=== PATIENT | male | born 1995 | race Caucasian/White ===

== ENCOUNTER 2022-01-17 21:29 | Emergency (ER) | payer SELFPAY ==
[2022-01-17] MEDS ORDERED: LORazepam 2 MG/ML VIAL IM PRN (21:53)
[2022-01-17] MEDS ORDERED: HALOPERIDOL LACTATE 5 MG/1 ML INJ IM PRN (21:53)
--- NOTE | 2022-01-17 21:56 | Emergency Department Report ---
ED General Adult HPI - General Chief complaint: Alcohol Stated complaint: ETOH Time Seen by Provider: 01/17/22 21:48 Source: family, RN notes reviewed Mode of arrival: Ambulatory Limitations: Altered Mental Status, Other (Patient will not answer my question) - History of Present Illness Initial comments: The patient is a 26-year-old gentleman. He is brought to the hospital with family. History obtained from friend/family at the bedside. They report the patient has been consuming alcohol, and has been having some family difficulty or fights. They also report the patient has been making concerning statements, about possibly hurting himself or other people. They state that the patient has fallen, although they are not sure about the nature of the fall. The patient is awake. He is breathing spontaneously. He is moving 4 extremities. He will not answer my questions. As per his cousin who is at the bedside, this has been going on for the past couple of days. -: days(s) - Related Data Allergies Allergy/AdvReac Type Severity Reaction Status Date / Time No Known Allergies Allergy Verified 01/17/22 21:37 ED Review of Systems ROS: Stated complaint: ETOH Other details as noted in HPI Comment: Unobtainable due to pts medical conditions ED Physical Exam - General Limitations: Altered Mental Status, Other (Patient is awake but not answering my question) General appearance: appears intoxicated, anxious - Head Head exam: Present: atraumatic, normocephalic - Eye Eye exam: Present: normal appearance, PERRL, EOMI. Absent: nystagmus - ENT ENT exam: Present: normal exam, normal orophraynx, mucous membranes moist, normal external ear exam - Neck Neck exam: Present: normal inspection, full ROM. Absent: tenderness, meningismus - Respiratory Respiratory exam: Present: normal lung sounds bilaterally. Absent: respiratory distress, wheezes, rales, rhonchi, stridor, decreased breath sounds - Cardiovascular Cardiovascular Exam: Present: regular rate, normal rhythm, normal heart sounds. Absent: bradycardia, tachycardia, irregular rhythm, systolic murmur, diastolic murmur, rubs, gallop - GI/Abdominal GI/Abdominal exam: Present: soft. Absent: distended, tenderness, guarding, rebound, rigid, pulsatile mass - Rectal Rectal exam: Present: deferred - Extremities Exam Extremities exam: Present: normal inspection, normal capillary refill, other (2+ pulses noted in the bilateral upper and lower extremities. There is no palpable cord. negative Homans sign. Muscular compartments are soft. The pelvis is stable.). Absent: pedal edema, calf tenderness - Back Exam Back exam: Present: normal inspection. Absent: tenderness, CVA tenderness (R), CVA tenderness (L), paraspinal tenderness, vertebral tenderness - Neurological Exam Neurological exam: Present: altered, other (The patient is awake. The patient was 4 extremities. There is no facial droop. The patient will not answer my question) - Skin Skin exam: Present: warm, dry, intact, normal color. Absent: rash ED Course Vital Signs 01/17/22 01/17/22 01/17/22 21:34 23:17 23:18 Temperature 98 F 98.8 F Pulse Rate 98 H 91 H Respiratory 16 15 Rate Blood Pressure 150/89 114/63 [Right] O2 Sat by Pulse 100 98 98 Oximetry - Reevaluation(s) Reevaluation #1: 01/17/22 23:22 Differential diagnosis, including not limited to: Alcohol intoxication, polysubstance intoxication, conversion disorder, closed head injury, cervical spine injury Assessment and plan: 26-year-old gentleman, brought to the hospital by family after possible fall, and intoxication, with concerning psychiatric symptoms. Patient is placed on 2012 for the aforementioned. Given alteration in mental status, history of fall, CT scan of the brain and cervical spine are obtained, and are negative for acute traumatic findings. Laboratory studies thus far are nonactionable. CBC is pending. Psychiatric consultation is requested. 01/17/22 23:24 Covid swab ordered in anticipation of potential psychiatric placement and disposition. Care will be transferred to the oncoming physician to follow-up on CBC. Presuming unremarkable CBC, we would consider this patient medically suitable for psychiatric consultation, disposition and placement. Suspect a component of conversion disorder at this point in time. 01/17/22 23:48 CBC is unremarkable. Patient moving 4 extremities. Apparently endorsed suicidality. Psychiatric consultation is pending. At this point in time, this patient does not appear to have an immediate medical contraindication to psychiatric admission, evaluation, consultation and placement ED Medical Decision Making - Lab Data Result diagrams: 01/17/22 23:28 01/17/22 Unknown Vital Signs 01/17/22 01/17/22 01/17/22 21:34 23:17 23:18 Temperature 98 F 98.8 F Pulse Rate 98 H 91 H Respiratory 16 15 Rate Blood Pressure 150/89 114/63 [Right] O2 Sat by Pulse 100 98 98 Oximetry Lab Results 01/17/22 01/17/22 01/17/22 Range/Units 21:55 21:55 21:55 Sodium (137-145) mmol/L Potassium (3.6-5.0) mmol/L Chloride (98-107) mmol/L Carbon Dioxide (22-30) mmol/L Anion Gap mmol/L BUN (9-20) mg/dL Creatinine (0.8-1.3) mg/dL Estimated GFR ml/min BUN/Creatinine Ratio % Glucose (75-100) mg/dL Calcium (8.4-10.2) mg/dL Magnesium 2.10 (1.7-2.3) mg/dL Total Bilirubin (0.1-1.2) mg/dL AST (5-40) units/L ALT (7-56) units/L Alkaline Phosphatase (35-129) units/L Total Creatine Kinase 309 H (55-170) units/L Total Protein (6.3-8.2) g/dL Albumin (3.9-5) g/dL Albumin/Globulin Ratio % Urine Color (Yellow) Urine Turbidity (Clear) Urine pH (5.0-7.0) Ur Specific [place] (1.003-1.030) Urine Protein (Negative) mg/dL Urine Glucose (UA) (Negative) mg/dL Urine Ketones (Negative) mg/dL Urine Blood (Negative) Urine Nitrite (Negative) Urine Bilirubin (Negative) Urine Urobilinogen (<2.0) mg/dL Ur Leukocyte Esterase (Negative) Urine WBC (Auto) (0.0-6.0) /HPF Urine RBC (Auto) (0.0-6.0) /HPF Salicylates < 0.3 L (2.8-20.0) mg/dL Urine Opiates Screen Urine Methadone Screen Acetaminophen (10.0-30.0) ug/mL Ur Barbiturates Screen Ur Phencyclidine Scrn Ur Amphetamines Screen U Benzodiazepines Scrn Urine Cocaine Screen U Marijuana (THC) Screen Drugs of Abuse Note Plasma/Serum Alcohol 0.07 (0-0.07) % 01/17/22 01/17/22 01/17/22 Range/Units 21:55 23:18 Unknown Sodium (137-145) mmol/L Potassium (3.6-5.0) mmol/L Chloride (98-107) mmol/L Carbon Dioxide (22-30) mmol/L Anion Gap mmol/L BUN (9-20) mg/dL Creatinine (0.8-1.3) mg/dL Estimated GFR ml/min BUN/Creatinine Ratio % Glucose (75-100) mg/dL Calcium (8.4-10.2) mg/dL Magnesium (1.7-2.3) mg/dL Total Bilirubin (0.1-1.2) mg/dL AST (5-40) units/L ALT (7-56) units/L Alkaline Phosphatase (35-129) units/L Total Creatine Kinase (55-170) units/L Total Protein (6.3-8.2) g/dL Albumin (3.9-5) g/dL Albumin/Globulin Ratio % Urine Color Colorless (Yellow) Urine Turbidity Clear (Clear) Urine pH 7.0 (5.0-7.0) Ur Specific [place] 1.004 (1.003-1.030) Urine Protein <15 mg/dl (Negative) mg/dL Urine Glucose (UA) Neg (Negative) mg/dL Urine Ketones Neg (Negative) mg/dL Urine Blood Neg (Negative) Urine Nitrite Neg (Negative) Urine Bilirubin Neg (Negative) Urine Urobilinogen < 2.0 (<2.0) mg/dL Ur Leukocyte Esterase Neg (Negative) Urine WBC (Auto) < 1.0 (0.0-6.0) /HPF Urine RBC (Auto) < 1.0 (0.0-6.0) /HPF Salicylates (2.8-20.0) mg/dL Urine Opiates Screen Presumptive negative Urine Methadone Screen Presumptive negative Acetaminophen 5.0 L (10.0-30.0) ug/mL Ur Barbiturates Screen Presumptive negative Ur Phencyclidine Scrn Presumptive negative Ur Amphetamines Screen Presumptive negative U Benzodiazepines Scrn Presumptive negative Urine Cocaine Screen Presumptive negative U Marijuana (THC) Screen Presumptive negative Drugs of Abuse Note Disclamer Plasma/Serum Alcohol (0-0.07) % 01/17/22 Range/Units Unknown Sodium 139 (137-145) mmol/L Potassium 3.9 (3.6-5.0) mmol/L Chloride 102.0 (98-107) mmol/L Carbon Dioxide 25 (22-30) mmol/L Anion Gap 16 mmol/L BUN 12 (9-20) mg/dL Creatinine 0.8 (0.8-1.3) mg/dL Estimated GFR > 60 ml/min BUN/Creatinine Ratio 15 % Glucose 131 H (75-100) mg/dL Calcium 9.2 (8.4-10.2) mg/dL Magnesium (1.7-2.3) mg/dL Total Bilirubin 0.30 (0.1-1.2) mg/dL AST 31 (5-40) units/L ALT 40 (7-56) units/L Alkaline Phosphatase 91 (35-129) units/L Total Creatine Kinase (55-170) units/L Total Protein 7.9 (6.3-8.2) g/dL Albumin 4.5 (3.9-5) g/dL Albumin/Globulin Ratio 1.3 % Urine Color (Yellow) Urine Turbidity (Clear) Urine pH (5.0-7.0) Ur Specific [place] (1.003-1.030) Urine Protein (Negative) mg/dL Urine Glucose (UA) (Negative) mg/dL Urine Ketones (Negative) mg/dL Urine Blood (Negative) Urine Nitrite (Negative) Urine Bilirubin (Negative) Urine Urobilinogen (<2.0) mg/dL Ur Leukocyte Esterase (Negative) Urine WBC (Auto) (0.0-6.0) /HPF Urine RBC (Auto) (0.0-6.0) /HPF Salicylates (2.8-20.0) mg/dL Urine Opiates Screen Urine Methadone Screen Acetaminophen (10.0-30.0) ug/mL Ur Barbiturates Screen Ur Phencyclidine Scrn Ur Amphetamines Screen U Benzodiazepines Scrn Urine Cocaine Screen U Marijuana (THC) Screen Drugs of Abuse Note Plasma/Serum Alcohol (0-0.07) % - EKG Data -: EKG Interpreted by Sd EKG shows normal: sinus rhythm Rate: normal - EKG Data When compared to previous EKG there are: previous EKG unavailable 01/17/22 23:34 The EKG is interpreted at 23: 22 Sinus rhythm, 88 bpm. Normal axis, normal P wave axis, normal intervals, and high left ventricular voltage. This is an abnormal EKG. This is not a STEMI - Radiology Data Radiology results: report reviewed, image reviewed CT HEAD WITHOUT CONTRAST INDICATION / CLINICAL INFORMATION: Closed Head Injury, E.T.O.H. intoxication. TECHNIQUE: CT head was performed without administration of intravenous contrast. All CT scans at this location are performed using CT dose reduction for ALARA by means of automated exposure control. COMPARISON: None available. FINDINGS: CEREBRAL PARENCHYMA: No significant abnormality. No acute territorial infarct. HEMORRHAGE: None. EXTRA-AXIAL SPACES: Normal in size and morphology for the patient's age. VENTRICULAR SYSTEM: Normal in size and morphology for the patient's age. MIDLINE SHIFT / HERNIATION: None. CEREBELLUM / BRAINSTEM: No significant abnormality. ORBITS: Normal as visualized. SOFT TISSUES: No significant abnormality. SKULL: No significant abnormality. PARANASAL SINUSES / MASTOID AIR CELLS: Normal as visualized. ADDITIONAL FINDINGS: None. IMPRESSION: 1. No acute intracranial abnormality. Signer Name: Blane Saravia II, MD Signed: 01/17/2022 9:45 PM Workstation Name: [facility] CT CERVICAL SPINE WITHOUT CONTRAST INDICATION / CLINICAL INFORMATION: Closed Head Injury with neck trauma, E.T.O.H. intoxication. TECHNIQUE: Axial CT images were obtained through the cervical spine. Sagittal and coronal reformatted images were produced. All CT scans at this location are performed using CT dose reduction for ALARA by means of automated exposure control. COMPARISON: None available. FINDINGS: MANDIBLE: No significant abnormality of the visualized mandible or TMJs. SKULL BASE: No significant abnormality of the skull base. CRANIOCERVICAL JUNCTION: No significant abnormality of the craniocervical junction. ALIGNMENT: No significant abnormality of alignment. VERTEBRAL BODIES: Vertebral body heights fairly uniform throughout. DISK SPACES: Disk spaces are fairly uniform throughout. FACET JOINTS: No significant abnormality of facet articulations. STENOSIS BY LEVEL: None. CENTRAL CANAL: No significant central stenosis. SOFT TISSUES: No significant abnormality of soft tissues or musculature. THYROID: No significant abnormality. UPPER CHEST: No significant abnormality of the visualized chest. ADDITIONAL FINDINGS: None. IMPRESSION: 1. No acute cervical spine injury. No significant degenerative changes. Signer Name: Blane Saravia II, MD Signed: 01/17/2022 9:48 PM Workstation Name: [place] Critical care attestation.: If time is entered above; I have spent that time in minutes in the direct care of this critically ill patient, excluding procedure time. ED Disposition Clinical Impression: History of fall, Medical clearance for psychiatric admission, Alcohol abuse, Encounter for medical screening examination Disposition: [address] [place] [address] Is pt being admited?: No Does the pt Need Aspirin: No Condition: Good Referrals: ALVARADO CUTLER MD [Primary Care Provider] - 3-5 Days
[2022-01-17 22:27] LABS: Alanine Aminotransferase 40 units/L (7-56); Albumin 4.5 g/dL (3.9-5); BUN/Creatinine Ratio 15; Blood Urea Nitrogen 12 mg/dL (9-20); Calcium 9.2 mg/dL (8.4-10.2); Hemolysis Index 7
--- NOTE | 2022-01-17 22:49 | Cat Scan Report ---
CT HEAD WITHOUT CONTRAST INDICATION / CLINICAL INFORMATION: Closed Head Injury, E.T.O.H. intoxication. TECHNIQUE: CT head was performed without administration of intravenous contrast. All CT scans at this location are performed using CT dose reduction for ALARA by means of automated exposure control. COMPARISON: None available. FINDINGS: CEREBRAL PARENCHYMA: No significant abnormality. No acute territorial infarct. HEMORRHAGE: None. EXTRA-AXIAL SPACES: Normal in size and morphology for the patient's age. VENTRICULAR SYSTEM: Normal in size and morphology for the patient's age. MIDLINE SHIFT / HERNIATION: None. CEREBELLUM / BRAINSTEM: No significant abnormality. ORBITS: Normal as visualized. SOFT TISSUES: No significant abnormality. SKULL: No significant abnormality. PARANASAL SINUSES / MASTOID AIR CELLS: Normal as visualized. ADDITIONAL FINDINGS: None. IMPRESSION: 1. No acute intracranial abnormality. Signer Name: Blane Saravia II, MD Signed: 01/17/2022 10:45 PM Workstation Name: [id number]
[2022-01-17 22:52] LABS: Bilirubin,Urine NEG (Negative); Blood,Urine NEG (Negative); Color,Urine Colorless (Yellow); Protein,Urine <15 mg/dL mg/dL (Negative); Urobilinogen,Urine < 2.0 mg/dL (<2.0)
--- NOTE | 2022-01-17 22:52 | Cat Scan Report ---
CT CERVICAL SPINE WITHOUT CONTRAST INDICATION / CLINICAL INFORMATION: Closed Head Injury with neck trauma, E.T.O.H. intoxication. TECHNIQUE: Axial CT images were obtained through the cervical spine. Sagittal and coronal reformatted images were produced. All CT scans at this location are performed using CT dose reduction for ALARA by means of automated exposure control. COMPARISON: None available. FINDINGS: MANDIBLE: No significant abnormality of the visualized mandible or TMJs. SKULL BASE: No significant abnormality of the skull base. CRANIOCERVICAL JUNCTION: No significant abnormality of the craniocervical junction. ALIGNMENT: No significant abnormality of alignment. VERTEBRAL BODIES: Vertebral body heights fairly uniform throughout. DISK SPACES: Disk spaces are fairly uniform throughout. FACET JOINTS: No significant abnormality of facet articulations. STENOSIS BY LEVEL: None. CENTRAL CANAL: No significant central stenosis. SOFT TISSUES: No significant abnormality of soft tissues or musculature. THYROID: No significant abnormality. UPPER CHEST: No significant abnormality of the visualized chest. ADDITIONAL FINDINGS: None. IMPRESSION: 1. No acute cervical spine injury. No significant degenerative changes. Signer Name: Blane Saravia II, MD Signed: 01/17/2022 10:48 PM Workstation Name: [id number]
[2022-01-17 22:59] LABS: RBC,Urine < 1.0 /HPF (0.0-6.0); WBC,Urine < 1.0 /HPF (0.0-6.0)
[2022-01-17 23:00] LABS: Amphetamine Screen,Urine PRESUMPTIVE NEGATIVE; Benzodiazepines Screen,Urine PRESUMPTIVE NEGATIVE; Cannabinoid Screen,Urine PRESUMPTIVE NEGATIVE; Cocaine Screen,Urine PRESUMPTIVE NEGATIVE; Methadone Screen,Urine PRESUMPTIVE NEGATIVE; Opiate Screen,Urine PRESUMPTIVE NEGATIVE
[2022-01-17 23:44] LABS: Hematocrit 43.8 % (35.5-45.6); Mean Corpuscular HGB Conc 34 % (32-34); Mean Corpuscular Volume 89 fl (84-94); Platelet Count 205 K/mm3 (140-440); Red Blood Count 4.94 M/mm3 (3.65-5.03); Red Cell Distribution Width 13.1 % (13.2-15.2)
--- NOTE | 2022-01-18 11:12 | Consultation ---
History of Present Illness - Reason for Consult Consult date: 01/18/22 Reason for consult: SI, depression - History of Present Psychiatric Illness HPI: The patient is a 26-year-old gentleman. He is brought to the hospital with family. History obtained from friend/family at the bedside. They report the patient has been consuming alcohol, and has been having some family difficulty or fights. They also report the patient has been making concerning statements, about possibly hurting himself or other people. They state that the patient has fallen, although they are not sure about the nature of the fall. The patient is awake. He is breathing spontaneously. He is moving 4 extremities. He will not answer my questions. As per his cousin who is at the bedside, this has been going on for the past couple of days. The patient was seen today. He makes poor eye contact. His affect is restricted. During my evaluation the patient tells me that he has a lot of family stuff going on. He says there are things going on with his and it's too much for him right now. The patient says he has been binge drinking for the past couple of months to deal with things. He says he typically doesn't drink. He denies past diagnoses of psych disorders, or psych meds, but states he's tried to commit suicide twice. The patient says last month he tried to jump in the river but his cousin stopped him. He also says about two months ago he cut his wrist. He also endorses suicidal thoughts at present. He says "I feel like I just can't bare it any more." He says he "will think of ways to do it." He denies hallucinations. He also denies any illicit drug use or nicotine. PAST PSYCHIATRIC HISTORY Diagnoses: Denies Suicide attempts or Self-harm behavior: twice Prior psychiatric hospitalizations: Denies Substance Abuse history: Denies Previous psychiatric medications tried: Denies Outpatient treatment: Denies PAST MEDICAL HISTORY: None reported Family Psychiatric History: None reported or documented SOCIAL HISTORY Living arrangement: with spouse Marital status: Unemployed High school diploma REVIEW OF SYSTEMS Constitutional: Negative for weight loss ENT: Negative for stridor Respiratory: Negative for cough or hemoptysis All other systems reviewed and are negative MENTAL STATUS EXAMINATION General Appearance and Behavior: Age appropriate, good hygiene, wearing appropriate clothes, good eye contact, calm, cooperative Cooperation: Participating/engaged, but Guarded Psychomotor Behavior: Psychomotor normal Mood: Depressed Affect and affective range: congruent with stated mood, restricted Thought Process: goal directed Thought Content: None Speech: normal tone and pace Suicidal Ideation: Yes Homicidal Ideation: Denies Hallucinations: Denies Delusions: None elicited Impulse Control: good Insight and Judgment: Limited insight and judgment Memory: Good Attention: attentive Orientation: Alert, oriented Assessment and Plan Major Depressive Disorder Treatment Plan 1013 Zoloft 25mg po daily Doxepin 10mg po qhs Medical: Per primary Sitter: Defer to primary Disposition: Recommend acute psychiatric inpatient treatment Will follow. Thanks Case staffed with Dr. Cheng Medications and Allergies Allergies Allergy/AdvReac Type Severity Reaction Status Date / Time No Known Allergies Allergy Verified 01/17/22 21:37 Active Meds: Active Medications Haloperidol Lactate (Haloperidol Lactate 5 Mg/1 Ml Inj) 5 mg IM Q6HR PRN PRN Reason: Agitation Lorazepam (Lorazepam 2 Mg/Ml Vial) 2 mg IM Q4HR PRN PRN Reason: Agitation Mental Status Exam - Vital signs Last Vital Signs Temp 97.8 F 01/18/22 04:59 Pulse 79 01/18/22 04:59 Resp 15 01/18/22 04:59 BP 140/88 01/18/22 04:59 Pulse Ox 99 01/18/22 09:31 Results Result Diagrams: 01/17/22 23:28 01/17/22 Unknown Abnormal lab results 01/17/22 01/17/22 01/17/22 Range/Units 21:55 21:55 21:55 RDW (13.2-15.2) % Glucose (75-100) mg/dL Total Creatine Kinase 309 H (55-170) units/L Salicylates < 0.3 L (2.8-20.0) mg/dL Acetaminophen 5.0 L (10.0-30.0) ug/mL 01/17/22 01/17/22 Range/Units 23:28 Unknown RDW 13.1 L (13.2-15.2) % Glucose 131 H (75-100) mg/dL Total Creatine Kinase (55-170) units/L Salicylates (2.8-20.0) mg/dL Acetaminophen (10.0-30.0) ug/mL All other labs normal.
--- NOTE | 2022-01-18 11:26 | Event Note ---
Date: 01/18/22 S: No events reported overnight O: Vital Signs - 8 hr 01/18/22 01/18/22 01/18/22 03:31 03:45 04:01 Temperature Pulse Rate Respiratory Rate Blood Pressure 117/62 117/62 118/65 O2 Sat by Pulse 98 98 99 Oximetry 01/18/22 01/18/22 01/18/22 04:15 04:31 04:45 Temperature Pulse Rate Respiratory Rate Blood Pressure 118/65 95/58 95/58 O2 Sat by Pulse 98 99 99 Oximetry 01/18/22 01/18/22 01/18/22 04:49 04:59 09:31 Temperature 97.8 F Pulse Rate 77 79 Respiratory 15 Rate Blood Pressure 140/88 O2 Sat by Pulse 100 99 Oximetry A: Homicidal ideation P: Awaiting psych eval
[2022-01-18] MEDS ORDERED: SERTRALINE 25 MG TAB PO SCH (12:00)
--- NOTE | 2022-01-18 14:28 | Electrocardiograph Report ---
[facility] Test Date: 2022-01-17 Test Time: 23:22:57 Pat Name: JORGE ART Department: Room: Gender: M Dock Boss: AMAIRANI : 1995 Requested By: NAJMA HERNANDEZ Order Number: [id number] Reading MD: Tony Medina Measurements Intervals [place] Rate: 88 P: 62 UT: 123 QRS: 70 QRSD: 92 T: 30 QT: 326 QTc: 394 Interpretive Statements Sinus rhythm ST elev, probable normal early repol pattern No previous ECG available for comparison Electronically Signed On 01-18-2022 14:28:24 EDT by Tony Medina
[2022-01-18] MEDS ORDERED: DOXEPIN 10 MG CAP PO SCH (22:00)
[2022-01-19 03:00] VITALS: BP 120/76
--- NOTE | 2022-01-19 13:33 | Event Note ---
Date: 01/19/22 S: No events reported overnight O: Vital Signs - 24 hr 01/18/22 01/19/22 20:09 02:47 Temperature 98.2 F 98.6 F Pulse Rate 18 L 75 Respiratory 18 16 Rate Blood Pressure 126/78 120/76 [Right] O2 Sat by Pulse 99 98 Oximetry A: Major depressive disorder P: 1013, awaiting inpatient psych
== END 2022-01-19 14:27 ==
LOC: ED 21:29 → EEVIPCON 21:29 → ED 01-19 14:27
DX: Z04.6 Encounter for general psychiatric examination, requested by authority (principal); F10.10 Alcohol abuse, uncomplicated; R41.82 Altered mental status, unspecified; Z20.822 Contact with and (suspected) exposure to COVID-19; W18.39XA Other fall on same level, initial encounter; Y93.89 Activity, other specified; Y92.89 Other specified places as the place of occurrence of the external cause; Y99.8 Other external cause status; Y90.9 Presence of alcohol in blood, level not specified
CPT/HCPCS: 36415; 70450; 72125; 80053; 80307; 81001; 82550; 83735; 85027; 93005; 99285; U0003; 80320; G0480